=== PATIENT | female | born 1980 ===

== ENCOUNTER 2018-03-30 09:46 | Emergency (ER) | payer OTHER ==
[2018-03-30 09:52] VITALS: TEMP 97.9; O2SAT 100
[2018-03-30] MEDS ORDERED: Lidocaine 5% Patch TD STA (10:23)
[2018-03-30] MEDS ORDERED: Lidocaine 5% Patch TD ONE (10:32)
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
[2018-03-30 12:06] VITALS: BP 121/69; PULSE 84; RESP 18
== END 2018-03-30 12:05 | disposition home or self-care (01) ==
LOC: C.ER 09:46
DX: S33.5XXA Sprain of ligaments of lumbar spine, initial encounter (principal); V49.40XA Driver injured in collision with unspecified motor vehicles in traffic accident, initial encounter